=== PATIENT | female | born 1985 | race Caucasian/White ===

== ENCOUNTER 2024-06-11 11:00 | Emergency (ER) | payer MEDICAID ==
[~2024-06-11] VITALS: Ht 165.1 cm; Wt 70.0 kg
[2024-06-11 11:03] VITALS: O2SAT 98
[2024-06-11 12:31] VITALS: BP 128/74; PULSE 90; RESP 16; TEMP 36.72516; O2SAT 98
== END 2024-06-11 12:31 | disposition home or self-care (01) ==
LOC: ER 11:56
DX: R51.9 Headache, unspecified (principal); F15.10 Other stimulant abuse, uncomplicated; Z59.00 Homelessness unspecified
CPT/HCPCS: 99283